=== PATIENT | female | born 1990 ===

== ENCOUNTER 2022-05-18 08:58 | Outpatient (CLI) | payer OTHER ==
[~2022-05-18] VITALS: Ht 165.1 cm; Wt 81.1 kg
[2022-05-18] VITALS (7 sets, daily range): BP systolic 102–119; BP diastolic 66–77; PULSE 60–79; TEMP 98
[~2022-05-18 08:58] MED LIST: NEURONTIN100 MG/CAP PO; ONE-A-DAY ESSE1 EACH PO
[2022-05-18] MEDS ORDERED: VTAMINC250TA PO (09:25)
[2022-05-18] MEDS ORDERED: IRON TABLETS325 MG PO (09:25)
[2022-05-18 11:12] LABS: GLUCOSE,CSF 60 mg/dL (40-70); TOTAL PROTEIN,CSF 21 mg/dL (15-45)
[2022-05-18 11:46] LABS: CSF APPEARANCE CLEAR; CSF COLOR COLORLESS; CSF RBC 20 /mm3 (0-0)
--- NOTE | 2022-05-18 11:50 | NUR ---
DC instructions reviewed with pt, she expresses understanding. She is stable on feet, standby assist to restroom. She has tolerated PO fluids without issue. Denies new complaints following LP procedure, but does state she continues to have her "normal" joint aches and tingeling in legs. Bandaid over LP site remains clean, dry and intact. She is assisted out by wheelchair to 's car with belongings.
[2022-05-18 12:16] LABS: CSF MONONUCLEAR 0 % (70-100); CSF POLYMORPHONUCLEAR 0 % (0-6)
[2022-05-20 16:37] LABS: ALBUMUN SERUM 4300 mg/dL (())
== END 2022-05-18 11:50 | disposition home or self-care (01) ==
LOC: COL.RAD 08:58
PROVIDERS: Psychiatry & Neurology Neurology
DX: G83.11 Monoplegia of lower limb affecting right dominant side (principal); M79.7 Fibromyalgia; R51.9 Headache, unspecified; G47.13 Recurrent hypersomnia